=== PATIENT | male | born 1960 | race Caucasian/White ===

== ENCOUNTER → 2020-11-10 | Outpatient (CLI) | payer OTHER ==
[~2020-11-10] MED LIST: 5-HTP100 MG PO; ALLERGY10 M2 PO; ASPIRIN EC81 M1 PO; ASPIRIN325 PO; ASPRIMOX 325 M325 MG PO; CATAPRES-TTS 10.1 MG PO; CLONIDINE0.1 PO; COLACE100 MG PO; COLCHICINE 0.60.6 M1 PO; FISH OIL 1,0001 EAC5 PO; FLAXSEED OIL1000 M2 PO; FOLIC ACID0.4 MG PO; FUROSEMIDE 20 M20 M1 PO; GLUCOPHAGE1000 MG PO; GLUCOSAMINE-MS1 EAC3 PO; HYDROCHLOROTHIA25 M1 PO; LANTUS SUBQ; LIPITOR40 MG PO; LOTREL 10-40 M1 EACH PO; MONOCAPS TABLE1 EACH PO; MOVANA300 MG PO; MUCUS RELIEF C400 MG PO; MULTI VITAMIN1 EACH PO; NASONEX17 GM NASAL; NIACIN 500 MG500 M1 PO; NOVOLOG100 UNIT/1 SUBQ; SENNA PO; TOPROL XL100 MG PO; TOPROL XL25 MG PO; VITAMIN C 250250 MG PO; VITAMIN E400 UNIT PO; VITAMINC500 PO; ZOCOR40 MG PO
[2020-11-10 11:59] LABS: URINE BILIRUBIN NEGATIVE (Negative); URINE BLOOD NEGATIVE (Negative); URINE CLARITY CLEAR; URINE COLOR YELLOW; URINE GLUCOSE-RANDOM* 3+ (Negative); URINE KETONES NEGATIVE (Negative); URINE LEUKOCYTES-REFLEX NEGATIVE (Negative); URINE NITRITE-REFLEX NEGATIVE (Negative); URINE PROTEIN (DIPSTICK) NEGATIVE (Negative); URINE UROBILINOGEN 0.2 E.U./dl (0.2-1.0)
[2020-11-10 12:26] LABS: ALBUMIN 3.9 g/dL (3.4-5.0); CALCIUM 9.1 mg/dL (8.5-10.1); CREATININE 1.9 mg/dL (0.7-1.3); POTASSIUM 4.3 mmol/L (3.5-5.1); TOTAL BILIRUBIN 0.7 mg/dL (0.2-1.0); TOTAL PROTEIN 7.6 g/dL (6.4-8.2)
--- NOTE | 2020-11-10 12:32 | 2DMMODE ---
[facility] [place] [address] 2 D/M-MODE ECHOCARDIOGRAM Name: SCOTT SUMMERS Cm Room #: REG [facility]#: [id number] Admission: 11/10/20 Attend Phys: Hayden Reese Discharge: Date of : 58 Report #: [id number] THIS REPORT FOR: cc: Markus Cooper MD, Logan F. MD Lundgren, Craig H. MD [facility] ~ APPROVED REPORT Study performed: 11/10/2020 10:09:28 EXAM: Comprehensive 2D, Doppler, and color-flow Echocardiogram Patient Location: Out-Patient Status: routine BSA: 2.59 HR: 61 bpm BP: 136/76 mmHg Rhythm: NSR Other Information Study Quality: Adequate Indications History of pericaditis with pericardial effusion. Pericardial window (2013). Hx: HTN, HLP, DM, morbid obesity. 2D Dimensions RVDd: 39.00 mm IVSd: 13.00 (7-11mm) LVOT Diam: 23.00 (18-24mm) LVDd: 53.00 mm PWd: 13.00 (7-11mm) Ascending Ao: 33.00 (22-36mm) LVDs: 35.00 (25-40mm) Left Atrium: 48.00 (27-40mm) Aortic Root: 37.00 mm Volumes Left Atrial Volume (Systole) Single Plane 4CH: 96.17 mL Single Plane 2CH: 75.73 mL LA ESV Index: 35.00 mL/m2 Aortic Valve AoV Peak Shayne.: 1.70 m/s AO Peak Gr.: 11.55 mmHg LVOT Max P.72 mmHg [facility] [address] [place] [address] 2 D/M-MODE ECHOCARDIOGRAM Name: SCOTT SUMMERS Room #: REG [facility]#: [id number] Admission: 11/10/20 Attend Phys: Hayden Clark Discharge: Date of : 58 Report #: [id number] LVOT Max V: 1.56 m/s ALYSE Vmax: 3.89 cm2 Mitral Valve E/A Ratio: 1.3 MV Decel. Time: 198.09 ms MV E Max Shayne.: 1.07 m/s MV A Shayne.: 0.85 m/s MV PHT: 57.45 ms IVRT: 79.58 ms Pulmonary Valve PV Peak Shayne.: 0.78 m/s PV Peak Gr.: 2.43 mmHg Pulmonary Vein P Vein S: 0.57 m/s P Vein A: 0.29 m/s P Vein D: 0.47 m/s P Vein A Dur.: 143.0 msec P Vein S/D Ratio: 1.21 Tricuspid Valve TR Peak Shayne.: 2.72 m/s RAP Estimate: 5.00 mmHg TR Peak Gr.: 30.00 mmHg PA Pressure: 35.00 mmHg Left Ventricle The left ventricle is normal size. There is normal LV segmental wall motion. Mild concentric left ventricular hypertrophy. Left ventricular systolic function is normal. LVEF is 60-65%. Moderate diastolic dysfunction is present. Right Ventricle The right ventricle is normal size. The right ventricular systolic function is normal. Atria Left atrium is at the upper limits of normal. The right atrium size is normal. Aortic Valve Aortic valve is trileaflet No aortic regurgitation is present. There is no aortic valvular stenosis. Mitral Valve The mitral valve is normal in structure. Trace mitral regurgitation. [facility] [address] [place] [address] 2 D/M-MODE ECHOCARDIOGRAM Name: SCOTT SUMMERS Room #: REG [facility]#: [id number] Admission: 11/10/20 Attend Phys: Hayden Clark Discharge: Date of : 58 Report #: [id number] Tricuspid Valve The tricuspid valve is normal in structure. Mild tricuspid regurgitation. Estimated PAP is 35mmHg. Pulmonic Valve The pulmonary valve is normal in structure. There is no pulmonic valvular regurgitation. Great Vessels The aortic root is normal in size. The ascending aorta is normal in size. IVC is normal in size and collapses >50% with inspiration. Pericardium There is no pericardial effusion. <Conclusion> Left ventricular systolic function is normal. There is normal LV segmental wall motion. LVEF is 60-65%. Moderate diastolic dysfunction is present. Aortic valve is trileaflet. No aortic regurgitation or stenosis. The mitral valve is normal in structure. Trace mitral regurgitation. Mild tricuspid regurgitation. Estimated pulmonary artery pressure of 35mmHg. There is no pericardial effusion. <ELECTRONICALLY SIGNED> By: Casimiro Gongora MD, FACC 11/10/20 1231 1231 1231 Casimiro Gongora MD, FACC /INF
== END ==
LOC: CV 10:18
PROVIDERS: ATTEND Chiropractor
DX: I34.0 Nonrheumatic mitral (valve) insufficiency (principal); I51.89 Other ill-defined heart diseases; I30.9 Acute pericarditis, unspecified; N18.9 Chronic kidney disease, unspecified

== ENCOUNTER → 2021-01-04 | Outpatient (CLI) | payer OTHER | LOC: ULTRA 12:49 | PROVIDERS: ATTEND Chiropractor | DX: R60.9 Edema, unspecified (principal); I73.9 Peripheral vascular disease, unspecified ==